=== PATIENT | female | born 1990 | race Caucasian/White ===

== ENCOUNTER 2018-05-23 09:10 | Emergency (ER) | payer OTHER ==
[2018-05-23 09:55] VITALS: BP 117/68
--- NOTE | 2018-05-23 10:34 | UC ---
General HPI - HPI Summary HPI Summary: pt is c/o pain to her upper abdomen that at times radiates into her chest and R neck. it worsens with cough, deep breathing and sometimes movement. on occasion , it goes into her back as well. the pain fluctuates in intensity. no n/v/d/ fever or injury. no sob, calf pain or swelling to BLE's. not on BCP's had tubal as well. during car ride here, .bumps in road worsens her abdominal pain. onset was last pm. did not eat this am. is currently in a supervised diet program with DR Munoz. - History of Current Complaint Chief Complaint: UCUpperExtremity Stated Complaint: RIGHT SIDE PAIN W/ BREATHING Time Seen by Provider: 05/23/18 10:26 Hx Obtained From: Patient Hx Last Menstrual Period: 05/12/18 Onset/Duration: Sudden Onset Timing: Constant Pain Intensity: 6 Associated Signs & Symptoms: Positive: Abdominal Pain. Negative: Diarrhea, Fever, Nausea, Vomiting - Allergy/Home Medications Allergies/Adverse Reactions: Allergies Allergy/AdvReac Type Severity Reaction Status Date / Time No Known Allergies Allergy Verified 05/23/18 09:46 Home Medications: Home Medications Weight Loss Medication 1 tab PO TID 05/23/18 [History] PMH/Surg Hx/FS Hx/Imm Hx Previously Healthy: Yes - Surgical History Surgical History: Yes Surgery Procedure, Year, and Place: x 2 Other Surgical History: tubal - Family History Known Family History: Positive: Unknown - adopted - Social History Lives: With Family Alcohol Use: None Substance Use Type: None Smoking Status (MU): Heavy Every Day Tobacco Smoker Type: Cigarettes Amount Used/How Often: 1/2 PPD - Immunization History Vaccination Up to Date: Yes Review of Systems Constitutional: Negative Skin: Negative Eyes: Negative ENT: Negative Respiratory: Negative Cardiovascular: Negative Gastrointestinal: Abdominal Pain Genitourinary: Negative Motor: Negative Neurovascular: Negative Musculoskeletal: Negative Neurological: Negative Psychological: Negative Is Patient Immunocompromised?: No All Other Systems Reviewed And Are Negative: Yes Physical Exam Triage Information Reviewed: Yes Appearance: Pain Distress Vital Signs: Initial Vital Signs Temp 97.6 F 05/23/18 09:48 Pulse 98 05/23/18 09:48 Resp 18 05/23/18 09:48 BP 117/68 05/23/18 09:48 Pulse Ox 100 05/23/18 09:48 Vital Signs Reviewed: Yes Eyes: Positive: Conjunctiva Clear ENT: Positive: Pharynx normal, TMs normal. Negative: Nasal congestion, Nasal drainage Neck: Positive: Supple, Nontender, No Lymphadenopathy Respiratory: Positive: Chest non-tender, Lungs clear, Normal breath sounds, No respiratory distress Cardiovascular: Positive: RRR, No Murmur Abdomen Description: Positive: No Organomegaly, Soft, Guarding - RUQ and epigastrum.. Negative: CVA Tenderness (R), CVA Tenderness (L), Distended Bowel Sounds: Positive: Present Musculoskeletal: Positive: ROM Intact, No Edema, Other: - no calf cords or tenderness Neurological: Positive: Alert Psychological: Positive: Age Appropriate Behavior Skin Exam: Normal Course/Dx - Course Course Of Treatment: REPORT CALLED TO THE [facility] ER. 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 CONCERN FOR GB ISSUE. PT AGREES TO STAY NPO, DECLINED EMS, FRIEND DRIVING HER TO ER DIRECTLY FROM HERE. - Differential Dx - Multi-Symptom Differential Diagnoses: Other - PROBABLE BILIARY ISSUE. PANCREATITIS POSSIBLE. DOUBT PE, PTX. WILL DEFER TESTING TO ER WELL. Provider Diagnoses: UPPER ABDOMINAL PAIN. Discharge - Sign-Out/Discharge Documenting (check all that apply): Patient Departure - Discharge Plan Condition: Stable Disposition: TRANS HIGHER LVL OF CARE FAC Referrals: Xiomara Rosa PA [Primary Care Provider] - Additional Instructions: LEAVE HERE AND GO DIRECTLY TO THE [facility] ROOM DISCUSSED. DO NOT EAT OR DRINK. - Billing Disposition and Condition Condition: STABLE Disposition: Trans Higher Lvl of Care Fac
== END 2018-05-23 10:42 | disposition short-term general hospital (02) ==
LOC: UCCORT 09:10
DX: R10.10 Upper abdominal pain, unspecified (principal); F17.210 Nicotine dependence, cigarettes, uncomplicated
CPT/HCPCS: 99212; G0463

== ENCOUNTER 2018-05-24 11:33 | Emergency (ER) | payer OTHER ==
[2018-05-24] MEDS ORDERED: Famotidine IV* 10 MG/ML 2 ML (20 mg) IV SLOW PU ONE (12:07)
[2018-05-24] MEDS ORDERED: Ondansetron ODT TAB* 4 MG SL ONE (12:07)
[2018-05-24] MEDS ORDERED: Al Hydrox/Mg Hydrox/Simet LIQ* 30 ML UDC PO ONE (12:07)
[2018-05-24 12:38] LABS: Hematocrit 36 % (35-47); Hemoglobin 11.8 g/dl (12.0-16.0); Mean Corpuscular HGB Conc 33 g/dl (31-36); Mean Corpuscular Hemoglobin 24 pg (27-31); Mean Corpuscular Volume 74 fL (80-97); Mean Platelet Volume 8.2 um3 (7.4-10.4); Platelet Count 168 10^3/ul (150-450); Red Blood Count 4.84 10^6/ul (4.00-5.40); Red Cell Distribution Width 17 % (10.5-15)
--- NOTE | 2018-05-24 12:39 | ED ---
Abdominal Pain/Female - HPI Summary HPI Summary: Patient is a 27-year-old female presenting to the ED with epigastric tenderness radiating up into the neck and on the left arm. She states she had epigastric tenderness radiating up to the right upper quadrant and right back side which was present yesterday. She was seen in [place] emergency room for this. Ultrasound and CT abdomen pelvis obtained which showed no acute findings. Also labs obtained which showed no acute findings. She was discharged home with muscle spasms. However she woke this morning with the pain radiating up into the chest and now is denying any pain to the right upper quadrant her back. No history of gastritis or ulcers. Symptoms are worse with deep inspiration and better at rest. She is endorsing slight shortness of breath with this, but denies any symptoms of palpitations. She is not able to reproduce the pain on deep palpation. Since last evening she has been taking her ibuprofen which was prescribed to her. Decreased by mouth intake since yesterday and has not eaten yet today. Patient is a smoker, however she denies any travel history, calf pain, known malignancy or OCP use. - History of Current Complaint Chief Complaint: EDAbdPain Stated Complaint: ABD/CHEST/SHOULDER PAIN Time Seen by Provider: 05/24/18 11:50 Hx Obtained From: Patient Hx Last Menstrual Period: 05/12/18 ?: No Onset/Duration: Sudden Onset, Lasting Days Timing: Constant Severity Initially: Moderate Severity Currently: Moderate Pain Intensity: 7 Pain Scale Used: 0-10 Numeric Location: Epigastric Radiates: Yes Radiates to: Chest, Other - neck Character: Other: - achy Alleviating Factor(s): Nothing Associated Signs and Symptoms: Positive: Decreased Appetite. Negative: Diaphoresis, Cough, Blood in Stool, Urinary Symptoms, Nausea, Vomiting, Diarrhea - Risk Factors Ectopic Risk Factor: Negative Ovarian Torsion Risk Factor: Negative Allergies/Adverse Reactions: Allergies Allergy/AdvReac Type Severity Reaction Status Date / Time No Known Allergies Allergy Verified 05/24/18 11:47 Home Medications: Home Medications NK [No Home Medications Reported] 05/24/18 [History Confirmed 05/24/18] PMH/Surg Hx/FS Hx/Imm Hx Previously Healthy: Yes - Surgical History Surgery Procedure, Year, and Place: x 2 - Immunization History Hx Pertussis Vaccination: No Immunizations Up to Date: Unable to Obtain/Confirm Infectious Disease History: No Infectious Disease History: Denies: Traveled Outside the [place] in Last 30 Days - Family History Known Family History: Positive: None, Unknown - adopted - Social History Occupation: Employed Full-time Lives: With Family Alcohol Use: Rare Hx Substance Use: Yes Substance Use Type: Reports: Marijuana Hx Tobacco Use: Yes Smoking Status (MU): Heavy Every Day Tobacco Smoker Type: Cigarettes Amount Used/How Often: 1/2 PPD Review of Systems Constitutional: Negative Negative: Fever, Chills, Fatigue, Skin Diaphoresis Negative: Epistaxis, Dental Pain Positive: Chest Pain Negative: Shortness Of Breath, Cough Negative: Abdominal Pain, Vomiting, Diarrhea, Nausea Genitourinary: Negative Positive: no symptoms reported, see HPI Positive: Myalgia - left side of neck/back Skin: Negative Neurological: Negative All Other Systems Reviewed And Are Negative: Yes Physical Exam Triage Information Reviewed: Yes Vital Signs On Initial Exam: Initial Vitals Temp Pulse Resp BP Pulse Ox 99.3 F 99 18 155/86 100 05/24/18 11:41 05/24/18 11:41 05/24/18 11:41 05/24/18 11:41 05/24/18 11:41 Vital Signs Reviewed: Yes Appearance: Positive: Well-Appearing, Well-Nourished Skin: Positive: Warm, Skin Color Reflects Adequate Perfusion Head/Face: Positive: Normal Head/Face Inspection Eyes: Positive: EOMI, KAMILAH, Conjunctiva Clear Neck: Positive: Supple, No Lymphadenopathy Respiratory/Lung Sounds: Positive: Clear to Auscultation, Breath Sounds Present Cardiovascular: Positive: RRR, Pulses are Symmetrical in both Upper and Lower Extremities Musculoskeletal: Positive: Normal, Strength/ROM Intact Neurological: Positive: Sensory/Motor Intact, Alert, Oriented to Person Place, Time, Speech Normal Psychiatric: Positive: Normal, Affect/Mood Appropriate AVPU Assessment: Alert - [place] Coma Scale Best Eye Response: 4 - Spontaneous Best Motor Response: 6 - Obeys Commands Best Verbal Response: 5 - Oriented Coma Scale Total: 15 Diagnostics - Vital Signs Vital Signs Temp Pulse Resp BP Pulse Ox 05/24/18 11:41 99.3 F 99 18 155/86 100 - Laboratory Result Diagrams: 05/24/18 12:19 05/24/18 12:19 Lab Statement: Any lab studies that have been ordered have been reviewed, and results considered in the medical decision making process. Abdominal Pain Fem Course/Dx - Course Course Of Treatment: During the course of treatment, the patient's evaluated for midepigastric pain radiating up the left side of the chest into the neck and down the left arm without associated numbness or tingling. She denies any known cardiac history. She denies any travel, recent immobilization or surgery , OCP use, malignancy, however patient is a smoker. Wells criteria shows her at low risk of 0, so d-dimer is obtained. Chest x-ray and labs obtained. Dimer 230. All other labs and xray negative. She will be discharged with strict return precautions. Dx. with atypical chest pain. - Diagnoses Differential Diagnosis: Positive: Other - muscle spasms, atypical chest pain, obesity, GERD Provider Diagnoses: Atypical chest pain Discharge - Sign-Out/Discharge Documenting (check all that apply): Patient Departure - Discharge Plan Condition: Stable Disposition: HOME Referrals: Xiomara Rosa PA [Primary Care Provider] - Additional Instructions: Please return for any worsening or changing symptoms - Billing Disposition and Condition Condition: STABLE Disposition: Home
[2018-05-24 12:50] LABS: EGFR Non-African American 108.5 (>60)
[2018-05-24 12:53] LABS: Urine Appearance Cloudy; Urine Blood Negative (Negative); Urine Color Amber; Urine Ketones 1+ (Negative); Urine Protein 1+(30 mg/dL) (Negative); Urine Red Blood Cell 2+(6-10/hpf) (Absent); Urine Specific Gravity 1.026 (1.010-1.030); Urine Urobilinogen Positive (Negative); Urine White Blood Cell Trace(0-5/hpf) (Absent)
--- NOTE | 2018-05-24 12:55 | RAD ---
INDICATION: Epigastric pain COMPARISON: None TECHNIQUE: PA and lateral dual-energy views were obtained. FINDINGS: Bones/Soft Tissues: There are no acute bony findings. There is moderate kyphosis Cardiomediastinal: The cardiomediastinal silhouette is normal. Lungs: There are no infiltrates. Pleura: There are no pleural effusions. Other: None IMPRESSION: NO ACTIVE DISEASE.
[2018-05-24 13:47] LABS: ABS Basophils 0 10^3/ul (0-0.2); ABS Eosinophils 0 10^3/ul (0-0.6); ABS Lymphocytes 0.7 10^3/ul (1.0-4.8); ABS Monocytes 0.5 10^3/ul (0-0.8); ABS Neutrophils 2.8 10^3/ul (1.5-7.7); ABS Nucleated RBC 0 10^3/ul; Eosinophil % 0.4 % (0-6); Lymphocyte % 16.7 % (25-47); Nucleated Red Blood Cells % 0.1
[2018-05-24] MEDS ORDERED: Acetaminophen TAB* 325 MG PO ONE (13:49)
[2018-05-24] MEDS ORDERED: Ketorolac INJ* 30 MG/ML 1 ML VIAL IV PUSH ONE (13:49)
[2018-05-24 16:25] VITALS: BP 138/74
== END 2018-05-24 16:24 | disposition home or self-care (01) ==
LOC: ED 11:33
DX: R07.89 Other chest pain (principal); F17.210 Nicotine dependence, cigarettes, uncomplicated
CPT/HCPCS: 36415; 71046; 80053; 81003; 81015; 83605; 83690; 83735; 84484; 85025; 85379; 86140; 87086; 87651; 93005; 96374; 96375; 99283; A9270-GY; J1885